=== PATIENT | male | born 1985 | race Asian ===

== ENCOUNTER 2017-09-24 17:12 | Emergency (ER) | payer OTHER ==
[~2017-09-24] VITALS: Ht 175.3 cm; Wt 83.7 kg
[~2017-09-24 17:12] MED LIST: NOHOMEMEDS
[2017-09-24 18:46] LABS: HEMATOCRIT 44.7 % (38.0-50.0); HEMOGLOBIN 15.6 G/DL (12.5-16.6); MCH 28.5 PG (29.0-34.0); MCHC 34.9 G/DL (30.0-36.0); MCV 81.7 FL (86-99); PLATELET COUNT 322 K/uL (156-360); RBC DIS.WIDTH-CV 13.2 % (11.8-14.6); RBC DIS.WIDTH-SD 39.7 % (39-53); RED BLOOD COUNT 5.47 M/uL (4.00-5.50); WHITE BLOOD COUNT 9.3 K/uL (4.1-10.2)
[2017-09-24 19:00] LABS: CHLORIDE 104 mEq/L (99-109); POTASSIUM 4.2 mEq/L (3.7-5.4); SODIUM 140 mEq/L (136-147)
[2017-09-24 19:01] LABS: GLUCOSE 95 mg/dL (70-99)
[2017-09-24 19:05] LABS: CREATININE 1.1 mg/dL (0.6-1.3); GFR ESTIMATE (CALCULATED) > 59 mL/min/ (58.99-99999)
[2017-09-24 19:06] LABS: UREA NITROGEN (BUN) 12 mg/dL (9-23)
[2017-09-24 19:12] LABS: TROP-I INTERPRETATION NEGATIVE; TROPONIN-I 0.02 ng/mL (0.0-0.30)
[2017-09-24 22:52] VITALS: BP 146/94
== END 2017-09-24 22:52 | disposition home or self-care (01) ==
LOC: EME 17:12
DX: R07.9 Chest pain, unspecified (principal); M54.2 Cervicalgia; M54.6 Pain in thoracic spine; Z82.49 Family history of ischemic heart disease and other diseases of the circulatory system; Z82.3 Family history of stroke; Z83.3 Family history of diabetes mellitus
CPT/HCPCS: 71046; 80048; 84484; 85027; 93005; 99281; 99283